=== PATIENT | male | born 1970 | race African-American/Black ===

== ENCOUNTER 2020-04-01 12:01 | Emergency (ER) | payer MEDICAID ==
[~2020-04-01] VITALS: Ht 182.9 cm; Wt 215.0 kg
[2020-04-01] MEDS ORDERED: ASPIRIN 81 MG TABLET CHEW ONE (12:27)
[2020-04-01] MEDS ORDERED: ONDANSETRON 2MG/ML, 2ML ONE (12:27)
[2020-04-01] MEDS ORDERED: MORPHINE SULFATE 4 MG/ML, 1ML ONE (12:27)
[2020-04-01] MEDS ORDERED: ACETAMINOPHEN 325 MG TABLET ONE (12:27)
[2020-04-01] MEDS ORDERED: ONDANSETRON 2MG/ML, 2ML IVPush ONE (12:30)
[2020-04-01] MEDS ORDERED: MORPHINE SULFATE 4 MG/ML, 1ML IVPush PRN (12:30)
[2020-04-01] MEDS ORDERED: SODIUM CHLORIDE FLUSH 10ML SYR IVF ONE (12:30)
[2020-04-01] MEDS ORDERED: ACETAMINOPHEN 325 MG TABLET PO ONE (12:30)
[2020-04-01] MEDS ORDERED: ASPIRIN 81 MG TABLET CHEW PO ONE (12:30)
[2020-04-01 12:43] LABS: BASOPHILS # (AUTO) 0.04 x10^3/uL (0-0.1); BASOPHILS % (AUTO) 1 % (0-1); EOSINOPHILS # (AUTO) 0.21 x10^3/uL (0-0.4); EOSINOPHILS % (AUTO) 2 % (1-7); LYMPHOCYTES # (AUTO) 1.42 x10^3/uL (1-3.4); LYMPHOCYTES % (AUTO) 16 % (22-44); MD NO; MEAN CORPUSCULAR VOLUME 87.7 fL (81-97); MEAN PLATELET VOLUME 8.1 fL (7.4-10.4); MONOCYTES # (AUTO) 0.68 x10^3/uL (0.2-0.8); MONOCYTES % (AUTO) 8 % (2-9); NEUTROPHILS # (AUTO) 6.47 x10^3/uL (1.8-6.8); NEUTROPHILS % (AUTO) 73 % (42-75); PLATELET COUNT 320 x10^3/uL (130-400); RED BLOOD COUNT 5.71 x10^6/uL (4.38-5.82)
--- NOTE | 2020-04-01 12:52 | NUR ---
PT MORE COMFORTABLE AFTER MEDICATED NOTED ON MAR WITH RR DECREASED. WILL CONTINUE TO MONITOR
--- NOTE | 2020-04-01 12:52 | NUR ---
PT HESITANT TO RECEIVE MORPHINE BECAUSE HE DOES NOT LIKE NARCOTICS. PT AGREED TO RECEIVE MEDICATION TO HELP WITH RIGHT SIDE PAIN.
[2020-04-01 12:54] LABS: ALANINE AMINOTRANSFERASE 37 U/L (12-78); ANION GAP 4 mmol/L (5-15); CALCIUM 8.6 mg/dL (8.5-10.1); CHLORIDE 108 mmol/L (98-107); CREATININE 1.58 mg/dL (0.7-1.3)
[2020-04-01 12:59] LABS: ALKALINE PHOSPHATASE 83 U/L (45-117); BILIRUBIN,TOTAL 0.6 mg/dL (0.2-1.0); TOTAL PROTEIN 8.4 g/dL (6.4-8.2); TROPONIN I 0.023 ng/mL (0.000-0.045)
--- NOTE | 2020-04-01 13:48 | NUR ---
CT AT BEDSIDE TO TAKE PT FOR CTA. PT STATES HE HAD ONE DONE AT [facility] THREE DAYS AGO. RECEIVED CONSENT FOR RECORDS FROM [facility]. PT REMAINS MORE COMFORTABLE SINCE MEDICATED. WILL CONTINUE TO MONITOR
--- NOTE | 2020-04-01 14:26 | NUR ---
BREAK RN: PT SLEEPING, RESP EVEN AND UNLABORED
--- NOTE | 2020-04-01 15:44 | NUR ---
CONTINUE TO AWAIT RECORDS FROM [facility]. LUNCH TRAY ORDERED. PT WATCHING TV, NO DISTRESS.
--- NOTE | 2020-04-01 16:15 | NUR ---
MD AT BEDSIDE CONVERSING WITH PT
[2020-04-01 16:30] VITALS: BP 144/76
--- NOTE | 2020-04-01 16:30 | NUR ---
PT USING TELEPHONE TO CALL . AND AWAITING DISCHARGE
--- NOTE | 2020-04-01 17:30 | NUR ---
PT UP TO WHEELCHAIR WITHOUT ASSISTANCE WHEN GABRIELA PLACED RIGHT BY GABRIELA. REVIEWED WITH PT THAT TESTS TODAY AND AT [facility] ALL REASSURING AND WENT OVER DISCHARGE PAPERS FOR CHOSTOCHONDRITIS. PT BROUGHT TO CAR BY WHEELCHAIR AND WITH W/C IMMEDIATELY NEXT TO DOOR PT ABLE TO GET INTO TRAVEL NURSE'S SEAT.
== END 2020-04-01 17:50 | disposition home or self-care (01) ==
LOC: ED 12:50
DX: R07.1 Chest pain on breathing (principal); R06.00 Dyspnea, unspecified; I25.2 Old myocardial infarction
CPT/HCPCS: 36415; 71045; 80053; 83880; 84484; 85025; 85379; 93005; 96374; 96375; 99285; J2270; J2405

== ENCOUNTER 2020-07-05 08:28 | Emergency (ER) | payer MEDICAID ==
[~2020-07-05] VITALS: Ht 182.9 cm; Wt 225.0 kg
--- NOTE | 2020-07-05 09:58 | NUR ---
PT. IS A & O X 4 WITH A [employer] OF 15. PT. 'S BREATH SOUNDS ARE DIMINISHED IN THE BASES AND PT. HAS A STRONG COUGH. PT. HAS C/O HEMATURIA AND PAINFUL URINATION X 2 DAYS. PT.'S CAP REFILL IS BRISK, LESS THAN 2 SECONDS. PULSES ARE +2 THROUGHOUT. PT.'S ABD. IS SOFT AND FLAT WITH BS + X 4 QUADS. PT.'S URINE WAS COLLECTED AND SENT. PT. IS RESTING WITHOUT CONCERNS.
[2020-07-05 10:18] LABS: MICROSCOPIC INDICATED
[2020-07-05] MEDS ORDERED: PHENAZOPYRIDINE 200 MG TABLET ONE (10:30)
[2020-07-05] MEDS ORDERED: PHENAZOPYRIDINE 200 MG TABLET PO ONE (10:30)
--- NOTE | 2020-07-05 10:41 | NUR ---
PT. HAS C/O PAIN. DISCUSSED WITH DR. TRISTAN. PT. WAS MEDICATED WITH PYRIDIUM ORDERED. LAB IS UNABLE TO DRAW THE PT.'S BLOOD. DR. TRISTAN IS AWARE.
--- NOTE | 2020-07-05 11:54 | NUR ---
DISCHARGE INSTRUCTIONS REVIEWED
[2020-07-05 12:34] VITALS: BP 177/112
== END 2020-07-05 12:36 | disposition home or self-care (01) ==
LOC: ED 09:56
DX: U07.1 COVID-19 (principal); N30.01 Acute cystitis with hematuria; R05 Cough; M79.10 Myalgia, unspecified site; R43.8 Other disturbances of smell and taste; I10 Essential (primary) hypertension; F17.210 Nicotine dependence, cigarettes, uncomplicated
CPT/HCPCS: 81001; 87077; 87086; 87186; 87635; 99283; 99406